=== PATIENT | female | born 2005 | race Caucasian/White ===

== ENCOUNTER 2023-08-09 21:58 | Outpatient (CLI) | payer MEDICAID | END 2023-08-09 21:59 | disposition critical access hospital (66) | LOC: EMS 21:58 | DX: R05.9 Cough, unspecified (principal); R11.10 Vomiting, unspecified; R42 Dizziness and giddiness; R06.02 Shortness of breath; R07.89 Other chest pain | CPT/HCPCS: A0425; A0429; A0999 ==

== ENCOUNTER 2023-08-09 22:20 | Emergency (ER) | payer MEDICAID ==
[2023-08-09] MEDS ORDERED: IBUPROFEN 600 MG TABLET PO STA (22:39)
[2023-08-09] MEDS ORDERED: ONDANSETRON ODT 4 MG TABLET TL STA (22:39)
[2023-08-09] MEDS ORDERED: LORazepam 0.5 MG TABLET PO STA (22:49)
--- NOTE | 2023-08-09 22:59 | ED Physician Documentation ---
History of Present Illness - Stated complaint Stated Complaint: DIZZY/VOMITING - Chief complaint Chief Complaint: Resp - History obtained from History obtained from: Patient, EMS - Additonal information Additional information: 17yF with pmh anxiety and panic attacks p/w nonproductive cough X 3 days, nbnb n/v X 4 today with epigastric discomfort and an episode of soa tonight with chest heaviness and dizziness and yellow spots in her vision. patient states she used to take anxiety medication and this does feel like a prior panic attack. denies diarrhea, back pain or urinary sx. soa and cp resolved on arrival. PD PAST MEDICAL HISTORY - Past Medical History Past Medical History: Yes Respiratory: Asthma - Past Surgical History Past Surgical History: No - Present Medications Home Medications: Ambulatory Orders Medication Instructions Recorded Confirmed Desogestrel-Ethinyl Estradiol 1 each PO DAILY 08/09/23 08/09/23 [Apri 28 Day Tablet] Acetaminophen [Tylenol] 650 mg PO Q6H PRN #30 tab 08/10/23 Ondansetron Odt [Zofran Odt] 4 mg TL Q6H PRN #10 tablet 08/10/23 - Allergies Allergies/Adverse Reactions: Allergies Allergy/AdvReac Type Severity Reaction Status Date / Time No Known Drug Allergies Allergy Verified 08/09/23 22:38 - Social History Does the pt smoke?: No Smoking Status: Never smoker Substance Use and Type: Marijuana PD ED PE NORMAL - Vitals Vital signs reviewed: Yes - General General: Alert and oriented X 3, Well developed/nourished, Other (tearful, anxious appearing) - HEENT HEENT: Atraumatic, PERRL, EOMI, Moist mucous membranes, Pharynx benign, Other (inflamed BL nasal turbinates) - Neck Neck: Supple, no meningeal sign - Cardiac Cardiac: RRR - Respiratory Respiratory: No respiratory distress, Clear bilaterally - Abdomen Abdomen: Non tender, Non distended - Back Back: No CVA TTP - Derm Derm: Normal color, Warm and dry - Extremities Extremities: No deformity - Neuro Neuro: Alert and oriented X 3 - Psych Psych: Other (anxious mood and affect) Results - Vitals Vitals: Vital Signs - 24 hr 08/09/23 22:31 Temperature 37.1 C Heart Rate 99 Respiratory 16 Rate Blood Pressure 123/71 O2 Saturation 99 Oxygen O2 Source Room air - Labs Labs: Laboratory Tests 08/09/23 23:06 Nasal Adenovirus (PCR) NOT DETECTED Nasal B. parapertussis DNA (PCR) NOT DETECTED Nasal Coronavir 229E PCR NOT DETECTED Nasal Coronavir HKU1 PCR NOT DETECTED Nasal Coronavir NL63 PCR NOT DETECTED Nasal Coronavir OC43 PCR NOT DETECTED Nasal Enterovir/Rhinovir PCR DETECTED A Nasal Influenza B PCR NOT DETECTED Nasal Influenza A PCR NOT DETECTED Nasal Parainfluen 1 PCR NOT DETECTED Nasal Parainfluen 2 PCR NOT DETECTED Nasal Parainfluen 3 PCR NOT DETECTED Nasal Parainfluen 4 PCR NOT DETECTED Nasal RSV (PCR) NOT DETECTED Nasal B.pertussis DNA PCR NOT DETECTED Nasal C.pneumoniae (PCR) NOT DETECTED Phil Human Metapneumo PCR NOT DETECTED Nasal M.pneumoniae (PCR) NOT DETECTED Nasal SARS-CoV-2 (PCR) NOT DETECTED PD Medical Decision Making - ED course ED course: 17yF presents to the ED with acute soa, chest tightness and dizziness tonight, in setting of uri sx X 3 days and vomiting today. patient acutely anxious and tearful in the ED, improving s/p ativan. nausea improved with odt zofran and she is tolerating po. body aches improved s/p ibuprofen. symptom care discussed and return precautions given. advised to f/u with pcp and with outpatient mental health. Departure - Departure Disposition: 01 Home, Self Care Clinical Impression: Anxiety attack, URI (upper respiratory infection), Nausea and vomiting Condition: Stable Instructions: ED Panic Attack, ED URI Viral, ED Nausea Vomiting Prescriptions: Acetaminophen [Tylenol] 650 mg PO Q6H PRN #30 tab PRN Reason: Pain Ondansetron Odt [Zofran Odt] 4 mg TL Q6H PRN #10 tablet PRN Reason: Nausea / Vomiting Comments: You were seen in the emergency department for medical illness likely caused by a virus, as well as for anxiety and panic attack. Electronic prescription for Tylenol and Zofran was sent to your pharmacy, [facility] in [place]. Please follow-up with your primary care provider for referral to mental health counseling and to consider medications in treatment of your anxiety. Please return to the emergency department if you have any new or worsening symptoms or other concerns. Forms: PCP List
[2023-08-10 00:31] LABS: CORONAVIRUS 229E-RESP PCR NOT DETECTED; CORONAVIRUS HKU1-RESP PCR NOT DETECTED; CORONAVIRUS NL63-RESP PCR NOT DETECTED; CORONAVIRUS OC43-RESP PCR NOT DETECTED; HUMAN METAPNEUMOVIRUS NOT DETECTED; INFLUENZA A- RESP PCR PANEL NOT DETECTED; RHINOVIRUS/ENTEROVIRUS DETECTED; SARS-CoV-2 -RESP PCR PANEL NOT DETECTED
[2023-08-10 00:32] LABS: B. PARAPERTUSSIS- RESP PCR PAN NOT DETECTED; B. PERTUSSIS- RESP PCR PANEL NOT DETECTED; C. PNEUMONIAE- RESP PCR PANEL NOT DETECTED; INFLUENZA B - RESP PCR PANEL NOT DETECTED; M. PNEUMONIAE- RESP PCR PANEL NOT DETECTED; PARAINFLUENZA VIRUS 1 NOT DETECTED; PARAINFLUENZA VIRUS 2 NOT DETECTED; PARAINFLUENZA VIRUS 3 NOT DETECTED; PARAINFLUENZA VIRUS 4 NOT DETECTED; RSV- RESP PCR PANEL NOT DETECTED
[2023-08-10 01:05] VITALS: BP 126/71; O2SAT 100
[2023-08-10 01:05] LABS: HCG UR QUAL NEGATIVE
== END 2023-08-10 00:58 | disposition home or self-care (01) ==
LOC: ED 22:20
DX: J06.9 Acute upper respiratory infection, unspecified (principal); F41.9 Anxiety disorder, unspecified; Z20.822 Contact with and (suspected) exposure to COVID-19
CPT/HCPCS: 81025; 87633; 99283; 99284; A9270; Q0162

== ENCOUNTER 2023-11-05 16:32 | Outpatient (CLI) | payer MEDICAID | END 2023-11-05 23:59 | disposition critical access hospital (66) | LOC: EMS 16:32 | DX: H92.02 Otalgia, left ear (principal) | CPT/HCPCS: A0425; A0429; A0999 ==

== ENCOUNTER 2023-11-05 16:54 | Emergency (ER) | payer MEDICAID ==
--- NOTE | 2023-11-05 17:14 | ED Physician Documentation ---
PD HPI HEENT - Stated complaint Stated Complaint: L EAR PX - Chief complaint Chief Complaint: Heent - Additional information Additional information: 17-year-old female presents emergency department via EMS for left ear pain. Pain started 3 days ago. She has not taken any Tylenol or ibuprofen for any of her left ear pain. Patient said that the left ear pain got so severe today that she had to call 911 to have her brought into the emergency department. She denies any trauma to the ears no known fevers or chills but she says that she has been feeling hot and more fatigued lately especially when she is going up the stairs to her apartment. No nausea vomiting able to open and close her jaw without any pain or tenderness PD PAST MEDICAL HISTORY - Past Medical History Past Medical History: Yes Respiratory: Asthma Neuro: None Endocrine/Autoimmune: None GI: None [employer]: None : None HEENT: None Psych: Anxiety Musculoskeletal: None Derm: None - Past Surgical History Past Surgical History: No - Present Medications Home Medications: Ambulatory Orders Medication Instructions Recorded Confirmed Desogestrel-Ethinyl Estradiol 1 each PO DAILY 08/09/23 11/05/23 [Apri 28 Day Tablet] Amoxicillin 875 mg PO BID 7 Days #14 tablet 11/05/23 - Allergies Allergies/Adverse Reactions: Allergies Allergy/AdvReac Type Severity Reaction Status Date / Time No Known Drug Allergies Allergy Verified 11/05/23 16:58 - Social History Does the pt smoke?: No Smoking Status: Never smoker Does the pt drink ETOH?: No Does the pt have substance abuse?: Yes Substance Use and Type: Marijuana - Immunizations Immunizations are current?: Yes PD ED PE NORMAL - Vitals Vital signs reviewed: Yes - General General: Alert and oriented X 3, Well developed/nourished, Other (tearful) - HEENT HEENT: Atraumatic, PERRL, Other (left tympanic membrane injected not bulging with cerumen.) - Cardiac Cardiac: RRR, No murmur - Respiratory Respiratory: No respiratory distress, Clear bilaterally Results - Vitals Vitals: Vital Signs - 24 hr 11/05/23 11/05/23 16:58 18:27 Temperature 38.1 C H 37.1 C Heart Rate 76 77 Respiratory 18 20 Rate Blood Pressure 131/64 H 126/86 H O2 Saturation 100 99 Oxygen O2 Source Room air - Labs Labs: Laboratory Tests 11/05/23 17:55 Nasal Adenovirus (PCR) NOT DETECTED Nasal B. parapertussis DNA (PCR) NOT DETECTED Nasal Coronavir 229E PCR NOT DETECTED Nasal Coronavir HKU1 PCR NOT DETECTED Nasal Coronavir NL63 PCR NOT DETECTED Nasal Coronavir OC43 PCR NOT DETECTED Nasal Enterovir/Rhinovir PCR NOT DETECTED Nasal Influenza B PCR NOT DETECTED Nasal Influenza A PCR NOT DETECTED Nasal Parainfluen 1 PCR NOT DETECTED Nasal Parainfluen 2 PCR NOT DETECTED Nasal Parainfluen 3 PCR NOT DETECTED Nasal Parainfluen 4 PCR NOT DETECTED Nasal RSV (PCR) NOT DETECTED Nasal B.pertussis DNA PCR NOT DETECTED Nasal C.pneumoniae (PCR) NOT DETECTED Phil Human Metapneumo PCR NOT DETECTED Nasal M.pneumoniae (PCR) NOT DETECTED Nasal SARS-CoV-2 (PCR) DETECTED A PD Medical Decision Making - ED course ED course: Exam and history most consistent with AOM. I have a low suspicion at this time for mastoiditis, malignant otitis externa, herpes or alvarez silva syndrome, or retained foreign body. Started amoxicillin. Cautious return precautions discussed w/ full understanding. Pt did test positive for COVID 19, results came back after pt discharged, I have called and left a voicemail for her to return my call when able. Departure - Departure Disposition: 01 Home, Self Care Clinical Impression: Acute otitis media Qualifiers: Otitis media type: other nonsuppurative Laterality: left Recurrence: non- recurrent Qualified Code(s): H65.192 - Other acute nonsuppurative otitis media, left ear Instructions: ED Otitis Media Acute Adult Prescriptions: Amoxicillin 875 mg PO BID 7 Days #14 tablet Comments: Thank you for trusting us with your care. I have evaluated your left ear and it does appear that you have something called an acute otitis media also known as an ear infection. This is most likely due to an upper respiratory infection that you are experiencing. We have sent a respiratory swab to the lab we will call you if this comes back with any positive results or findings. I have sent a prescription of amoxicillin to in [place] you have taken the first dose tonight already you will take the next dose first thing tomorrow morning and then twice a day for the next 7 days. Please follow-up with your primary care provider in a week for further evaluation of your left ear pain. Please come back to the emergency department if you are starting to develop any worsening fevers or chills, pain when opening closing your jaw, drainage from the left ear, or any other concerning symptoms. Please take Tylenol and ibuprofen for any pain or discomfort to your left ear and apply warm compresses to your left ear. Forms: PCP List Discharge Date/Time: 11/05/23 18:31
[2023-11-05] MEDS: ACETAMINOPHEN 325 MG TABLET PO STA (17:44)
[2023-11-05] MEDS: IBUPROFEN 600 MG TABLET PO STA (17:45)
[2023-11-05] MEDS: AMOXICILLIN 250 MG CAPSULE PO STA (17:45)
[2023-11-05 18:35] VITALS: BP 126/86; O2SAT 99
[2023-11-05 19:00] LABS: CORONAVIRUS 229E-RESP PCR NOT DETECTED; CORONAVIRUS HKU1-RESP PCR NOT DETECTED; CORONAVIRUS NL63-RESP PCR NOT DETECTED; CORONAVIRUS OC43-RESP PCR NOT DETECTED
[2023-11-05 19:02] LABS: B. PARAPERTUSSIS- RESP PCR PAN NOT DETECTED; B. PERTUSSIS- RESP PCR PANEL NOT DETECTED; C. PNEUMONIAE- RESP PCR PANEL NOT DETECTED; HUMAN METAPNEUMOVIRUS NOT DETECTED; INFLUENZA A- RESP PCR PANEL NOT DETECTED; INFLUENZA B - RESP PCR PANEL NOT DETECTED; M. PNEUMONIAE- RESP PCR PANEL NOT DETECTED; PARAINFLUENZA VIRUS 1 NOT DETECTED; PARAINFLUENZA VIRUS 2 NOT DETECTED; PARAINFLUENZA VIRUS 3 NOT DETECTED; PARAINFLUENZA VIRUS 4 NOT DETECTED; RHINOVIRUS/ENTEROVIRUS NOT DETECTED; RSV- RESP PCR PANEL NOT DETECTED; SARS-CoV-2 -RESP PCR PANEL DETECTED
== END 2023-11-05 18:31 | disposition home or self-care (01) ==
LOC: EDUNIT# → ED 16:54
DX: U07.1 COVID-19 (principal); H65.192 Other acute nonsuppurative otitis media, left ear
CPT/HCPCS: 87633; 99283; A9270